=== PATIENT | female | born 1970 | race Caucasian/White ===

== ENCOUNTER → 2023-09-14 | Outpatient (REF) | payer BC, SELFPAY | LOC: DHSLP | PROVIDERS: ATTENDING PHYSICIAN Registered Nurse Ambulatory Care; FAMILY PHYSICIAN Internal Medicine | DX: G47.30 Sleep apnea, unspecified (principal); R06.83 Snoring | CPT/HCPCS: 95800 ==

== ENCOUNTER → 2024-02-06 15:01 | Outpatient (REF) | payer BC, SELFPAY | LOC: WDC 15:01 | PROVIDERS: ATTENDING PHYSICIAN Obstetrics & Gynecology Gynecology; FAMILY PHYSICIAN Family Medicine | DX: R92.8 Other abnormal and inconclusive findings on diagnostic imaging of breast (principal) | CPT/HCPCS: 77061; 77063; 77065; 77067 ==

== ENCOUNTER → 2024-06-02 07:17 | Outpatient (REF) | payer BC, SELFPAY | LOC: HWRAD 07:17 | PROVIDERS: ATTENDING PHYSICIAN Family Medicine; FAMILY PHYSICIAN Family Medicine | DX: R63.5 Abnormal weight gain (principal); I10 Essential (primary) hypertension; R09.82 Postnasal drip; E78.2 Mixed hyperlipidemia; K21.9 Gastro-esophageal reflux disease without esophagitis | CPT/HCPCS: 76700 ==

== ENCOUNTER → 2024-08-21 08:58 | Outpatient (REF) | payer BC, SELFPAY | LOC: DHSLP 08:58 | PROVIDERS: ATTENDING PHYSICIAN Otolaryngology; FAMILY PHYSICIAN Internal Medicine | DX: G47.00 Insomnia, unspecified (principal) | CPT/HCPCS: 95810 ==

== ENCOUNTER → 2025-01-09 14:28 | Outpatient (REF) | payer BC, SELFPAY | LOC: WDC 14:28 | PROVIDERS: ATTENDING PHYSICIAN Obstetrics & Gynecology Gynecology; FAMILY PHYSICIAN Family Medicine | DX: Z12.31 Encounter for screening mammogram for malignant neoplasm of breast (principal) | CPT/HCPCS: 77063; 77067 ==